=== PATIENT | male | born 1980 | race Caucasian/White ===

== ENCOUNTER 2019-10-10 23:17 | Emergency (ER) | payer BC ==
[2019-10-10] MEDS ORDERED: LORazepam 1 MG Tab ONE (23:25)
[2019-10-10] MEDS ORDERED: Sodium Chloride 0.9% 1,000 ML IV SCH (23:50)
[2019-10-11] MEDS ORDERED: LORazepam 1 MG Tab ONE (00:54)
--- NOTE | 2019-10-11 01:46 | ER ---
REASON FOR EMERGENCY ROOM VISIT: "Heart racing." HISTORY: This 39-year-old man from [place], [place] was up here ice fishing with some buddies. He stated that yesterday they drank excessively throughout the day and he admits that he got quite intoxicated after drinking all day and ice fishing. Today, however, the only residual effect of that was that he had no appetite and ate very little and drank very little throughout the day. After eating, he had not had any fever, chills, cough, runny nose, myalgias, or GI symptoms, and shortly after eating dinner this evening and while watching television, he noticed that his heart was racing and was experiencing what sounds like palpitations and a sensation that he "did not feel quite right." He denied any chest pain, arm pain, neck pain, or back pain with this and states that throughout the day he felt fine and did not have these symptoms. He had fished all day and otherwise felt fine. His past medical history is significant in that he underwent ablation for WPW in 1993 or 1994. Since then, he has not had any difficulties and he has not had any history of hypertension or arrhythmias since then nor has he had any prior episodes of palpitations. He denies any exertional chest pain or shortness of breath. MEDICATIONS: None. ALLERGIES: NONE TO MEDICATIONS. PAST MEDICAL HISTORY: 1. Tonsillectomy as a child. 2. Appendectomy as a child. FAMILY HISTORY: His father has hypertension and diabetes. His mother has hypercholesterolemia. He has 2 siblings who are alive and well and 2 children who are alive and well. REVIEW OF SYSTEMS: Pertinent positives and negatives as listed in the HPI. PHYSICAL EXAMINATION: GENERAL: He appears somewhat anxious, but is otherwise in no acute distress. VITAL SIGNS: On admission, initially his heart rate was 131, but within a couple of minutes it went down to the 115-119 range. His blood pressure on admission was 160/107, respiratory rate 20, O2 sats 97% on room air. He is afebrile. HEENT: Head is normocephalic. No conjunctivitis or scleral icterus. Oropharynx is somewhat dry in appearance. NECK: Supple. No JVD. No bruits. CHEST: Clear to auscultation with good air exchange and no wheezes, rhonchi, or rales. CARDIAC: Regular rate without murmur or rub. ABDOMEN: Obese, but soft and nontender. No palpable masses. No organomegaly. EXTREMITIES: Normal pulses. No edema. No deformities. NEUROLOGIC: His cranial nerves 2 through 12 intact. Muscle strength, bulk, and tone are normal and symmetrical. Deep tendon reflexes are not checked. Sensation is normal to crude touch. SKIN: No rashes. LABORATORY DATA: His WBCs were elevated at 13,700. His hemoglobin is 15.6. His CMP was unremarkable except he has a borderline elevation of total bilirubin of 1.3. The remainder of his liver enzymes are normal and his electrolytes are normal. His troponin was 0.017. A 12-lead EKG showed sinus tachycardia with the rate of 119. His AR interval is 112 milliseconds. His QT corrected is 613 milliseconds. He does have some Q-waves in the lateral leads. EMERGENCY ROOM COURSE: We went ahead and gave him a liter of normal saline and half way through that, his blood pressure and heart rate responded nicely with a heart rate that went down into the 90s to low 100s and his blood pressure settled down at 138/86. Altogether, he was given 1 L of IV fluid. He felt a bit less anxious and remained symptom free throughout apart from some mild anxiety throughout this ER visit. IMPRESSION: 1. Sinus tachycardia. 2. Leukocytosis. PLAN: It could be that this is a matter of dehydration or that he is coming down with something. Given the leukocytosis, his sinus tachycardia did respond to IV fluids. I am inclined to believe that this is not likely related to his WPW history in the past, especially since he has had ablation. I explained to him that it is possible this is related to his WPW, and I did discuss the worrisome rhythms associated with it including atrial fibrillation, AV elida reentry tachycardia, etc. He has none of these at this point in time. I felt that it would not be unreasonable for him to go home a day early as he has a primary care provider back home in [place], but left that up to him depending on how he feels. Certainly, if he has a recurrence of his symptoms and racing heart rate, he should return to be re-evaluated. I think he probably got somewhat dehydrated as a result of drinking excessively on . All questions were answered. He understands and agrees with this plan. DARLENE/RO /[id number]
== END 2019-10-11 01:15 | disposition home or self-care (01) ==
LOC: LB.ED 23:17
DX: R00.0 Tachycardia, unspecified (principal); D72.829 Elevated white blood cell count, unspecified
CPT/HCPCS: 36415; 80053; 84484; 85025; 93005; 96360; 99285-25; A9270-GY; J7030